=== PATIENT | male | born 1945 | race Asian ===

== ENCOUNTER 2016-12-30 22:03 | Inpatient (IN) | payer MEDICARE, OTHER ==
[~2016-12-30] VITALS: Ht 182.9 cm; Wt 63.8 kg
[2016-12-30] MEDS ORDERED: IOHEXOL 300 MG/ML 100ML BOTTLE IJ ONE (23:18)
[2016-12-30 23:39] LABS: Allen Test Yes; Base Excess 0.1 mmol/L (-2.0-2.0); Blood 02Sat 93.3 % (96-100); Blood COHb 0.2 % (0.5-1.5); Blood MetHb 0.3 % (0.0-1.5); HHb 6.7 % (0.0-5.0); MODE ROOM AIR; O2Hb 92.8 % (94.0-97.0); PCO2 31.6 mmHg (35.0-45.0); PCO2(T) 31.6 mmHg (35.0-45.0); PO2 71.2 mmHg (80.0-100.0); PO2(T) 71.2 mmHg (80.0-100.0); Sample Type Arterial
[2016-12-30 23:39] LABS: Hematocrit 35.7 % (41.0-53.0); Hemoglobin 11.9 g/dL (13.5-17.5); Mean Corpuscular Hemoglobin 29.1 pg (28.0-32.0); Mean Corpuscular Hgb Conc. 33.4 g/dL (32.0-36.0); Red Cell Distribution Width 16.9 % (11.8-14.3); White Blood Cell 6.4 10^3/uL (4.4-10.8)
[2016-12-31 00:01] LABS: Fibrinogen 332.5 mg/dL (177-375); INR 0.98 (0.9-1.15); Partial Thromboplastin Time 23.1 sec (22.64-33.71); Prothrombin Time 10.7 sec (9.37-12.3)
[2016-12-31 00:03] LABS: Albumin 2.4 g/dL (3.4-5.0); BUN/Creatinine Ratio 14.6; Bilirubin, Total 0.9 mg/dL (0.2-1.0); Calcium 7.5 mg/dL (8.5-10.1); Potassium 3.4 mmol/L (3.5-5.1); Total Protein 5.6 g/dL (6.4-8.2)
[2016-12-31 00:06] LABS: Urine Bilirubin Negative (Negative); Urine Blood Negative /uL (Negative); Urine Color PINK (Yellow); Urine Glucose Normal (Normal); Urine Ketone Negative (Negative); Urine Mucus FEW (None Seen); Urine Nitrite Negative (Negative); Urine RBC <1 /hpf (0 - 3); Urine Sperm PRESENT /hpf (None Seen); Urine Squamous Epithelial Cell FEW /hpf (<5); Urine pH 5.5 (5.0-8.0)
[2016-12-31 00:21] LABS: Lactic Acid w/Reflex 2.2 mmol/L (0.4-2.0)
[2016-12-31 00:56] LABS: Metamyelocytes % 0; Myelocytes % 0; Promyelocytes % 0; Reactive Lymphocytes 0
[2016-12-31 00:58] LABS: Platelet Estimate Decreased; RBC Morphology Normal
[2016-12-31 00:59] LABS: Platelet Count (auto) 78 10^3/uL (140-450)
[2016-12-31] MEDS ORDERED: PIPERACILLIN-TAZOB 3.375GM 100 ML IV ONE ×2 (01:09→01:15)
[2016-12-31] MEDS ORDERED: SODIUM CHLORIDE 0.9% 2,000 ML IV ONE (01:15)
[2016-12-31 01:36] LABS: REFLEX LACTIC ACID YES OR NO YES
[2016-12-31 02:04] LABS: Lactic Acid w/Reflex 2.5 mmol/L (0.4-2.0)
[2016-12-31 02:05] LABS: REFLEX LACTIC ACID YES OR NO NO
[2016-12-31] MEDS ORDERED: MIRT15TA3 PO (04:25)
[2016-12-31] MEDS ORDERED: OXY5T PO (04:25)
[2016-12-31] MEDS ORDERED: PRE5T PO (04:25)
[2016-12-31] MEDS ORDERED: SODIUM CHLORIDE 0.9% 1,000 ML IV ONE (04:30)
[2016-12-31] MEDS ORDERED: MORPHINE SULF INJ 2 MG/ML SYRINGE 1ML IV PRN ×2 (05:00)
[2016-12-31] MEDS ORDERED: NITROGLYCERIN 0.4 MG SL TAB SL PRN (05:00)
[2016-12-31] MEDS ORDERED: ONDANSETRON HCL 4 MG/2 ML VIAL IV PRN (05:00)
[2016-12-31] MEDS ORDERED: POTASSIUM CHL 20 Meq TABLET PO ONE (05:00)
[2016-12-31] MEDS ORDERED: VANCOMYCIN PER PHARMACY 0 MG IV SCH (05:00)
[2016-12-31] MEDS ORDERED: ACETAMINOPHEN 500 MG TAB PO PRN (05:00)
[2016-12-31] MEDS: NOREPINEPHRINE BITARTRATE 250 ML IV SCH (05:22)
[2016-12-31] MEDS ORDERED: VANCOMYCIN 1GM/250ML D5W 250 ML IV ONE (05:30)
[2016-12-31] MEDS: PIPERACILLIN-TAZOB 3.375GM 100 ML IV SCH ×3 (06:07→16:24)
[2016-12-31 08:36] LABS: Basophils # (auto) 0 uL; Basophils % (auto) 0.2 % (0.0-2.0); Eosinophils # (auto) 0.3 uL; Eosinophils % (auto) 1.5 % (0.0-7.0); Hematocrit 36.2 % (41.0-53.0); Hemoglobin 11.7 g/dL (13.5-17.5); Lymphocytes # (auto) 1.1 uL; Lymphocytes % (auto) 6.1 % (10.0-50.0); Mean Corpuscular Hemoglobin 28.5 pg (28.0-32.0); Mean Corpuscular Hgb Conc. 32.4 g/dL (32.0-36.0); Mean Corpuscular Volume 87.9 fL (80.0-100.0); Mean Platelet Volume 7.1 fL (6.9-10.8); Monocytes # (auto) 1.3 uL; Monocytes % (auto) 7.4 % (0.0-12.0); Neutrophils % (auto) 84.8 % (37.0-80.0); Platelet Count (auto) 115 10^3/uL (140-450); Red Cell Distribution Width 17.1 % (11.8-14.3); White Blood Cell 17.7 10^3/uL (4.4-10.8)
[2016-12-31 08:47] LABS: BUN/Creatinine Ratio 13.3; Calcium 7.2 mg/dL (8.5-10.1); Potassium 3.8 mmol/L (3.5-5.1); Total Protein 4.9 g/dL (6.4-8.2)
[2016-12-31 09:08] LABS: Temperature: 21.5 C (20.0-25.0)
[2016-12-31] MEDS: predniSONE 5 MG TAB PO SCH (10:04)
[2016-12-31] MEDS ORDERED: SODIUM CHLORIDE 0.9% 1,000 ML IV SCH (15:15)
[2016-12-31] MEDS: SODIUM CHLORIDE 0.9% 1,000 ML IV SCH (15:30)
[2016-12-31] MEDS: ENOXAPARIN SOD 40 MG/0.4 ML SYRINGE SC SCH (16:10)
[2016-12-31] MEDS: VANCOMYCIN 1GM/250ML D5W 250 ML IV SCH (17:54)
[2016-12-31] MEDS: HYDROcodone-ACET 5/325MG TAB PO PRN (21:13)
[2016-12-31] MEDS: MIRTAZAPINE 30 MG TAB PO SCH (22:18)
[2016-12-31] MEDS: FAMOTIDINE 20 MG TAB PO SCH (22:18)
[2017-01-01] MEDS: PIPERACILLIN-TAZOB 3.375GM 100 ML IV SCH ×5 (00:40→23:59)
[2017-01-01 04:14] LABS: Basophils # (auto) 0 uL; Basophils % (auto) 0.4 % (0.0-2.0); Eosinophils # (auto) 0.3 uL; Eosinophils % (auto) 3.1 % (0.0-7.0); Hematocrit 34.6 % (41.0-53.0); Hemoglobin 11.6 g/dL (13.5-17.5); Lymphocytes # (auto) 0.7 uL; Lymphocytes % (auto) 8.1 % (10.0-50.0); Mean Corpuscular Hemoglobin 29.2 pg (28.0-32.0); Mean Corpuscular Hgb Conc. 33.6 g/dL (32.0-36.0); Mean Corpuscular Volume 86.9 fL (80.0-100.0); Mean Platelet Volume 6.9 fL (6.9-10.8); Monocytes # (auto) 0.8 uL; Monocytes % (auto) 10.4 % (0.0-12.0); Neutrophils # (auto) 6.4 uL; Platelet Count (auto) 70 10^3/uL (140-450); Red Cell Distribution Width 17.2 % (11.8-14.3); White Blood Cell 8.2 10^3/uL (4.4-10.8)
[2017-01-01 04:30] LABS: Albumin 1.8 g/dL (3.4-5.0); Calcium 7.9 mg/dL (8.5-10.1); Potassium 3.6 mmol/L (3.5-5.1)
[2017-01-01 04:32] LABS: BUN/Creatinine Ratio 14.3
[2017-01-01 04:50] LABS: Bilirubin, Total 0.9 mg/dL (0.2-1.0); Total Protein 4.5 g/dL (6.4-8.2)
[2017-01-01] MEDS: NOREPINEPHRINE BITARTRATE 250 ML IV SCH (04:58)
[2017-01-01] MEDS: SODIUM CHLORIDE 0.9% 1,000 ML IV SCH ×2 (04:58→17:35)
[2017-01-01] MEDS: VANCOMYCIN 1GM/250ML D5W 250 ML IV SCH ×2 (06:06→18:00)
[2017-01-01] MEDS: HYDROcodone-ACET 5/325MG TAB PO PRN (06:07)
[2017-01-01] MEDS: predniSONE 5 MG TAB PO SCH (10:17)
[2017-01-01] MEDS: FAMOTIDINE 20 MG TAB PO SCH ×2 (10:17→22:11)
[2017-01-01] MEDS ORDERED: MAGNESIUM SULFATE 1GM/100ML 100 ML IV ONE (16:00)
[2017-01-01] MEDS ORDERED: POTASSIUM CHL 20 Meq TABLET PO ONE (16:00)
[2017-01-01] MEDS: ENOXAPARIN SOD 40 MG/0.4 ML SYRINGE SC SCH (16:00)
[2017-01-01 20:00] VITALS: BP 126/69
[2017-01-01 21:45] VITALS: BP 126/69
[2017-01-01] MEDS: MIRTAZAPINE 30 MG TAB PO SCH (22:00)
[2017-01-01] MEDS ORDERED: diphenhdrAMINE HCL 25 MG CAP PO ONE (22:45)
[2017-01-02] MEDS: HYDROcodone-ACET 5/325MG TAB PO PRN ×2 (04:39→15:35)
[2017-01-02 05:00] VITALS: BP 117/69
[2017-01-02] MEDS: VANCOMYCIN 1GM/250ML D5W 250 ML IV SCH (05:50)
[2017-01-02] MEDS: PIPERACILLIN-TAZOB 3.375GM 100 ML IV SCH (06:48)
[2017-01-02 06:59] LABS: Basophils # (auto) 0 uL; Basophils % (auto) 0.3 % (0.0-2.0); Eosinophils # (auto) 0.2 uL; Eosinophils % (auto) 2.6 % (0.0-7.0); Hematocrit 34.9 % (41.0-53.0); Hemoglobin 11.5 g/dL (13.5-17.5); Lymphocytes # (auto) 0.9 uL; Mean Corpuscular Hemoglobin 28.5 pg (28.0-32.0); Mean Corpuscular Hgb Conc. 33.1 g/dL (32.0-36.0); Mean Corpuscular Volume 86.2 fL (80.0-100.0); Mean Platelet Volume 7.9 fL (6.9-10.8); Monocytes # (auto) 0.7 uL; Neutrophils # (auto) 4.8 uL; Neutrophils % (auto) 73.1 % (37.0-80.0); Platelet Count (auto) 76 10^3/uL (140-450); Red Cell Distribution Width 16.7 % (11.8-14.3); White Blood Cell 6.6 10^3/uL (4.4-10.8)
[2017-01-02 07:10] LABS: Calcium 7.8 mg/dL (8.5-10.1); Potassium 4.5 mmol/L (3.5-5.1)
[2017-01-02] MEDS: SODIUM CHLORIDE 0.9% 1,000 ML IV SCH ×2 (07:30→21:59)
[2017-01-02 08:00] VITALS: BP 134/67
[2017-01-02 09:00] VITALS: BP 134/67
[2017-01-02] MEDS ORDERED: cefTRIAXone 1GM/50ML D5W 50 ML IV ONE (09:45)
[2017-01-02] MEDS: predniSONE 5 MG TAB PO SCH (10:21)
[2017-01-02] MEDS: FAMOTIDINE 20 MG TAB PO SCH ×3 (10:21→22:00)
[2017-01-02] MEDS ORDERED: IOHEXOL 350 MG/ML 100ML IJ ONE ×2 (12:52→15:56)
[2017-01-02 13:00] VITALS: BP 131/74
[2017-01-02] MEDS ORDERED: diphenhdrAMINE HCL 25 MG CAP PO PRN (15:45)
[2017-01-02] MEDS: ENOXAPARIN SOD 40 MG/0.4 ML SYRINGE SC SCH (15:55)
[2017-01-02 17:00] VITALS: BP 125/81
[2017-01-02] MEDS: ENOXAPARIN SOD 80 MG/0.8ML SYRINGE SC SCH (21:58)
[2017-01-02] MEDS: MIRTAZAPINE 30 MG TAB PO SCH ×2 (21:58→22:00)
[2017-01-02 22:00] VITALS: BP 108/64
[2017-01-03 05:00] VITALS: BP 131/74
[2017-01-03 06:49] LABS: BUN/Creatinine Ratio 11.6; Calcium 7.9 mg/dL (8.5-10.1); Potassium 3.7 mmol/L (3.5-5.1)
[2017-01-03] MEDS ORDERED: cefTRIAXone 1GM/50ML D5W 50 ML IV SCH (09:00)
[2017-01-03 09:25] VITALS: BP 122/71
[2017-01-03] MEDS: ENOXAPARIN SOD 80 MG/0.8ML SYRINGE SC SCH (09:59)
[2017-01-03] MEDS: predniSONE 5 MG TAB PO SCH (09:59)
[2017-01-03] MEDS: FAMOTIDINE 20 MG TAB PO SCH (09:59)
[2017-01-03] MEDS ORDERED: SACC250C PO (11:06)
[2017-01-03] MEDS ORDERED: APIX5TAB PO (11:08)
[2017-01-03] MEDS ORDERED: POTASSIUM CHL 20 Meq TABLET PO ONE (11:15)
[2017-01-03 13:00] VITALS: BP 125/71
[2017-01-03 14:15] VITALS: BP 125/71
== END 2017-01-03 17:10 | disposition home health service (06) | DRG 871 ==
LOC: ER 22:03 → TELE 22:04 → TELE-E-ADS 01-01 17:53 → TELE-CENTR 01-01 18:36
PROVIDERS: ADMIT Nurse Practitioner Family; ATTEND Internal Medicine
DX: A41.9 Sepsis, unspecified organism (principal); R65.21 Severe sepsis with septic shock; I26.99 Other pulmonary embolism without acute cor pulmonale; C25.1 Malignant neoplasm of body of pancreas; C16.9 Malignant neoplasm of stomach, unspecified; C78.00 Secondary malignant neoplasm of unspecified lung; C78.7 Secondary malignant neoplasm of liver and intrahepatic bile duct
CPT/HCPCS: 36415; 36600; 71010; 71275; 74177; 80048; 80053; 80202; 81001; 82550; 82805; 83605; 83735; 83880; 84484; 85007; 85025; 85027; 85379; 85384; 85610; 85730; 86141; 87040; 87077; 87086; 87186; 93005; 96365; 96366; 99291; J0696; J2543